=== PATIENT | male | born 1995 | race Hispanic/Latino ===

== ENCOUNTER 2017-03-26 22:39 | Emergency (ER) | payer OTHER ==
[2017-03-26 22:45] VITALS: BP 137/68; PULSE 86; RESP 18; TEMP 98; O2SAT 99
--- NOTE | 2017-03-26 23:07 | ED PDOC ---
HPI: Psych/Substance Abuse Time Seen by Provider: 03/26/17 22:51 Chief Complaint (Nursing): Alcohol Ingestion Chief Complaint (Provider): etoh History Per: Patient, EMS Additional History Per: Patient, EMS Additional Complaint(s): 22 y/o male brought in by EMS for acute alcohol intoxication. Patient admits to drinking tonight, denies acute medical or psychiatric complaints. Past Medical History Reviewed: Historical Data, Nursing Documentation, Vital Signs Vital Signs: Last Vital Signs Temp 98 F 03/26/17 22:40 Pulse 86 03/26/17 22:40 Resp 18 03/26/17 22:40 BP 137/68 03/26/17 22:40 Pulse Ox 99 03/26/17 22:40 - Medical History PMH: No Chronic Diseases - Surgical History Surgical History: No Surg Hx - Family History Family History: States: Unknown Family Hx - Living Arrangements Living Arrangements: Alone - Allergies Allergies/Adverse Reactions: Allergies Allergy/AdvReac Type Severity Reaction Status Date / Time No Known Allergies Allergy Verified 03/26/17 22:40 Review of Systems ROS Statement: Except As Marked, All Systems Reviewed And Found Negative Physical Exam - Reviewed Nursing Documentation Reviewed: Yes Vital Signs Reviewed: Yes - Physical Exam Appears: Positive for: Well, Non-toxic, No Acute Distress Head Exam: Positive for: ATRAUMATIC, NORMAL INSPECTION, NORMOCEPHALIC Skin: Positive for: Normal Color Eye Exam: Positive for: Normal appearance ENT: Positive for: Normal ENT Inspection Cardiovascular/Chest: Positive for: Regular Rate, Rhythm Respiratory: Positive for: Normal Breath Sounds Gastrointestinal/Abdominal: Positive for: Normal Exam Back: Positive for: Normal Inspection Extremity: Positive for: Normal ROM Neurologic/Psych: Positive for: Alert, Oriented - ECG O2 Sat by Pulse Oximetry: 99 - Progress ED Course And Treament: Patient states his friend will be coming to pick him up ED OBSERVATION Discharge: Yes Date of observation admission: 03/27/17 Time of observation admission: 01:00 - Observation admission statement Patient is being placed in observation because:: acute alcohol intoxication - Goals of Observation Goals of observation are:: observe for clinical sobriety - Progress Note Progress Note: 03/27/17 1:00 Patient sleeping, no distress 3:00 Patient sleeping, no distress 03/27/17 04:55 Patient awake, alert, oriented x3;ambulating steady gait. Stable for discharge Disposition - Clinical Impression Clinical Impression: Alcohol intoxication - Patient ED Disposition Is Patient to be Admitted: No Counseled Patient/Family Regarding: Diagnosis, Need For Followup - Disposition Disposition: Routine/Home Disposition Time: 04:56 Condition: STABLE Instructions: Alcohol Intoxication (ED)
== END 2017-03-27 05:00 | disposition home or self-care (01) ==
LOC: H.ER 22:39
DX: F10.129 Alcohol abuse with intoxication, unspecified (principal)